=== PATIENT | female | born 1950 ===

== ENCOUNTER 2023-07-14 09:06 | Day surgery (SDC) | payer OTHER ==
[~2023-07-14] VITALS: Ht 63.5 cm; Wt 87.5 kg
[~2023-07-14 09:06] MED LIST: ALLERGY RELIE15.8 ML; AMLODIP PO; FARXIGA5 MG PO; GRALISE600 MG PO; IRBESAR PO; PROTONIX40 M1 PO; TIROSINT75 MCG PO
== END 2023-07-14 18:35 | disposition home or self-care (01) ==
LOC: CIR.AMB 09:06
PROVIDERS: ATTEND Colon & Rectal Surgery
DX: R15.9 Full incontinence of feces (principal); Z20.822 Contact with and (suspected) exposure to COVID-19; R32 Unspecified urinary incontinence
CPT/HCPCS: 64581; 95971; C1767

== ENCOUNTER 2023-07-28 07:14 | Day surgery (SDC) | payer OTHER | END 2023-07-28 16:20 | disposition home or self-care (01) | LOC: CIR.AMB 07:14 | PROVIDERS: ATTEND Colon & Rectal Surgery | DX: R15.9 Full incontinence of feces (principal); R32 Unspecified urinary incontinence; Z20.822 Contact with and (suspected) exposure to COVID-19; I10 Essential (primary) hypertension; E78.5 Hyperlipidemia, unspecified | CPT/HCPCS: 64590; 95971; C1767 ==